=== PATIENT | male | born 1955 | race Caucasian/White ===

== ENCOUNTER 2017-04-18 02:54 | Inpatient (IN) ==
[2017-04-18] MEDS ORDERED: *HR* HYDROmorphone (PF) 1 MG/ML SYRINGE IVP ONE ×2 (03:00→05:37)
[2017-04-18] MEDS ORDERED: Hyoscyamine 0.5 MG/ML MLS IM ONE (03:00)
[2017-04-18] MEDS ORDERED: 0.9 % Sodium Chloride 1,000 ML IVC ONE (03:00)
--- NOTE | 2017-04-18 03:20 | Emergency Department Note ---
Disposition Clinical Impression: Nephrolithiasis, Acute kidney injury, Nausea Disposition: Admitted As Inpatient Condition: Fair Referrals: Art Ramírez MD [Primary Care Provider] - Forms: ED Satisfaction Letter Time of Disposition: 06:06 General Adult HPI - General Chief complaint: ED Back Pain/Injury Stated complaint: kidney stone pain Time Seen by Provider: 04/18/17 02:57 Source: patient Limitations: no limitations Nursing Notes Reviewed: Yes Vital Signs Reviewed: Yes - History of Present Illness HPI Narrative: Mr. Sosa, a 61-year-old male, presents from home for evaluation of right- sided flank pain persisted over the last 3 days. He was seen and diagnosed with a right-sided nephrolithiasis in this department 2 days ago. His pain or cysts and is getting progressively worse. Described as right-sided intermittent sharp stabbing. PMH: Nephrolithiasis Patient has no current urologist. ROS: Positive: Nephrolithiasis, right-sided pain, decreased PO intake, nausea Negative: Fever, chills, vomiting, pain with urination Physical exam Vital Signs Reviewed General: Patient is alert, oriented, and in no acute distress. HEENT: No facial asymmetry. Head is normocephalic and atraumatic. Mucosa moist. Trachea midline. Cardiovascular: Heart regular rate and rhythm without clicks, rubs, gallops, or murmurs. No JVD. PMI nondisplaced. Respiratory: Symmetric chest rise with good respiratory effort. Bilateral breath sounds are clear without wheezing, crackles, or rhonchi. Abdomen: Bowel sounds present normoactive x-4 quadrants. Abdomen is soft, nondistended. Right sided tenderness. Musculoskeletal: Right CVA tenderness. Psych: Patient's affect is appropriate for situation. MDM: Analgesia, antiemetic. We will repeat CT assessing for worsening hydronephrosis. Patient's pain is poorly controlled while in the emergency department. His nausea is moderately controlled. I clinically suspect that, it discharge home, he will be returning for continued pain and nausea management. He has had minimal by mouth intake while at home. After discussion with patient and his , they agree to admission for pain and nausea control as well as possible urology consult for worsening hydronephrosis causing obstructive acute kidney injury. I discussed the patient with the admitting hospitalist, , who agrees to accept the patient for continued management. CT abdomen and pelvis with IV and no oral contrast dated 04/16/17: CT/CT abd pelvis w iv no oral IMPRESSION: 1. A 4 mm proximal right ureteral calculus with mild right-sided hydronephrosis. 2. Otherwise no acute findings within the abdomen or pelvis. No CT evidence of appendicitis. Abdomen/Pelvis CT 04/18/17 03:00 IMPRESSION: Re- demonstration of the 4 mm proximal right ureteral calculus which has slightly progressed distally compared to prior examination with persistent right hydroureteronephrosis and perinephric stranding which is slightly worsened. D/ / Laci Hayden MD / Laci Hayden MD Interpreting Provider: Laci Hayden MD Pain Scale: 10 - Related Data Previous Rx's Medication Instructions Recorded Ondansetron ODT [Zofran ODT] 4 mg SL Q6HR PRN #12 tab.rapdis 04/16/17 OxyCODONE/APAP 5/325 [Percocet 1 each PO Q4HR PRN #18 tablet 04/16/17 5/325 MG] Tamsulosin [Flomax] 0.4 mg PO DAILY #5 cap.er.24h 04/16/17 Allergies Allergy/AdvReac Type Severity Reaction Status Date / Time No Known Allergies Allergy Verified 04/18/17 02:55 All systems ED: reviewed and negative except as stated. Review of Systems: As Per HPI Past Medical History - Past Medical History Medical history: Reports: arthritis, kidney stones Psychiatric history: Reports: no psych history - Social History Smoking Status: Never smoker Smokeless Tobacco Status: No Alcohol use: Reports: none Drug use: Reports: none Physical Exam - General Limitations: no limitations General appearance: alert Course Vital Signs Temperature 98.4 F 04/18/17 02:58 Pulse Rate 82 04/18/17 02:58 Respiratory Rate 16 04/18/17 02:58 Blood Pressure 170/91 04/18/17 02:58 O2 Sat by Pulse Oximetry 94 04/18/17 02:58 Temperature 98.4 F 04/18/17 02:58 Pulse Rate 89 04/18/17 05:30 Respiratory Rate 16 04/18/17 05:30 Blood Pressure 145/84 04/18/17 05:30 O2 Sat by Pulse Oximetry 94 04/18/17 05:30 Oxygen Delivery Oxygen Delivery Room Air Medical Decision Making - Lab Data Result diagrams: 04/18/17 04:16 04/18/17 04:16 Lab Results 04/18/17 04/18/17 04/18/17 Range/Units 03:45 04:16 04:16 WBC 18.1 H D (4.3-11.1) K/mcL RBC 4.55 (4.19-5.50) M/mcL Hgb 13.7 (12.9-16.9) g/dL Hct 40.2 (37.5-50.1) % MCV 88.4 (83.0-100.0) fL MCH 30.1 (28.0-33.3) pg MCHC 34.1 (31.6-35.5) g/dL RDW 12.2 (11.5-14.5) % Plt Count 258 (140-400) K/mcL MPV 9.0 L (9.4-12.4) fL Immature Gran % 0.6 (0-4) % Seg Neutrophils % 89.4 % Lymphocytes % 3.4 % Monocytes % 6.5 % Eosinophils % 0.0 % Basophils % 0.1 % Neutrophils # 16.2 H (1.6-8.9) K/mcL Lymphocytes # 0.6 (0.6-4.6) K/mcL Monocytes # 1.2 (0.0-1.3) K/mcL Eosinophils # 0.0 (0.0-0.6) K/mcL Basophils # 0.0 (0.0-0.2) K/mcL Sodium 133 L (136-145) mEq/L Potassium 4.3 (3.5-4.5) mEq/L Chloride 100 (98-109) mEq/L Carbon Dioxide 24 (19-29) mEq/L BUN 21 (8-26) mg/dL Creatinine 1.57 H (0.72-1.25) mg/dL Est GFR ( Amer) 55 L (> 60) Est GFR (Non-Af Amer) 45 L (> 60) BUN/Creatinine Ratio 13 (6-26) Glucose 188 H (70-99) mg/dL Calculated Osmolality 284 (280-300) Calcium 8.7 (8.6-10.8) mg/dL Total Bilirubin 0.9 D (0.2-1.2) mg/dL AST 14 (5-34) Units/L ALT 17 (0-55) Units/L Alkaline Phosphatase 80 (38-126) Units/L Serum Total Protein 6.6 (6.0-8.3) g/dL Albumin 3.5 (3.5-5.0) g/dL Globulin 3.1 (2.4-3.5) g/dL Albumin/Globulin Ratio 1.1 (1.1-2.2) Urine Color Yellow (Yellow) Urine Clarity Clear (Clear) Urine pH 6.0 (5.0-8.0) pH Units Ur Specific Cisco 1.029 H (1.010-1.025) Urine Protein Negative (Neg-Trace) mg/dL Urine Glucose (UA) 100 H (Normal) mg/dL Urine Ketones 15 H (Negative) mg/dL Urine Blood Small H (Negative) Urine Nitrite Negative (Negative) Urine Bilirubin Negative (Negative) Urine Urobilinogen Normal (Normal) mg/dL Ur Leukocyte Esterase Negative (Negative) Urine Microscopic RBC 5-15 H (0-3) per hpf Urine Microscopic WBC 0-3 (0-3) per hpf Ur Squamous Epith Cells Moderate H (None-Few) per lpf Urine Bacteria None Seen (None-Few) per hpf Hyaline Casts None Seen (None-Few) per lpf Ur Culture Indicated? NO (NO) Attestation Statement - Attestation Attestation: I examined this patient and my medical decision-making was reviewed with the Resident Physician. I agree with the documented findings, disposition and treatment plan as described except to the extent set forth below. Concern for kidney stone and possible hydronephrosis. We will obtain CT scan and basic laboratory analysis to assess creatinine as well as to assess stone burden. Pain control. Final disposition pending results of imaging.
[2017-04-18 04:03] LABS: Bilirubin,Urine Negative (Negative); Blood,Urine Small (Negative); Clarity,Urine Clear (Clear); Color,Urine Yellow (Yellow); Glucose,Urine (UA) 100 mg/dL (Normal); Ketones,Urine 15 mg/dL (Negative); Leukocyte Esterase,Urine Negative (Negative); Nitrite,Urine Negative (Negative); Protein,Urine Negative (Neg-Trace); Specific Gravity,Urine 1.029 (1.010-1.025); Urobilinogen,Urine Normal (Normal)
[2017-04-18 04:04] LABS: Bacteria,Urine None Seen per hpf (None-Few); Hyaline Casts,Urine None Seen per lpf (None-Few); Squamous Epithelial Cell,Urine Moderate per lpf (None-Few); WBC,Urine 0-3 per hpf (0-3)
[2017-04-18 04:25] LABS: Basophils % 0.1 %; Hematocrit 40.2 % (37.5-50.1); Hemoglobin 13.7 g/dL (12.9-16.9); Immature Granulocytes % 0.6 % (0-4); Lymphocytes # 0.6 K/mcL (0.6-4.6); Lymphocytes % 3.4 %; Mean Corpuscular HGB Conc 34.1 g/dL (31.6-35.5); Mean Corpuscular Hemoglobin 30.1 pg (28.0-33.3); Mean Corpuscular Volume 88.4 fL (83.0-100.0); Monocytes # 1.2 K/mcL (0.0-1.3); Monocytes % 6.5 %; Neutrophils # 16.2 K/mcL (1.6-8.9); Platelet Count 258 K/mcL (140-400); Red Blood Count 4.55 M/mcL (4.19-5.50); Red Cell Distribution Width 12.2 % (11.5-14.5); Segmented Neutrophils % 89.4 %
[2017-04-18 04:45] LABS: Albumin 3.5 g/dL (3.5-5.0); Albumin/Globulin Ratio 1.1 (1.1-2.2); Calcium 8.7 mg/dL (8.6-10.8); Globulin 3.1 g/dL (2.4-3.5); Potassium 4.3 mEq/L (3.5-4.5); Total Protein 6.6 g/dL (6.0-8.3)
[2017-04-18 04:46] LABS: Bilirubin,Total 0.9 mg/dL (0.2-1.2)
[2017-04-18] MEDS ORDERED: Naloxone 0.4 MG/ML INJ IVP PRN ×2 (07:46→15:58)
[2017-04-18] MEDS ORDERED: Ondansetron 4 MG/2 ML VIAL IVP PRN ×2 (07:46→15:58)
[2017-04-18] MEDS ORDERED: *HR* Promethazine 25 MG/ML VIAL IVP PRN ×3 (07:46→15:58)
[2017-04-18] MEDS ORDERED: Acetaminophen 325 MG TABLET PO PRN ×2 (07:46→15:58)
[2017-04-18] MEDS ORDERED: *HR* HYDROcodone/Acet 5/325 mg TABLET PO PRN ×3 (07:46→16:17)
[2017-04-18] MEDS ORDERED: *HR* HYDROcodone/Acet 7.5/325 mg TABLET PO PRN ×2 (07:50→15:58)
[2017-04-18] MEDS ORDERED: 0.9 % Sodium Chloride 1,000 ML IVC SCH ×2 (08:00→15:58)
[2017-04-18] MEDS: *HR* HYDROmorphone (PF) 1 MG/ML SYRINGE IVP PRN ×2 (08:22→11:42)
--- NOTE | 2017-04-18 08:32 | Urology - Consult Note ---
Date of Encounter: 04/18/17 Time of Encounter: 08:28 - Assessment and Plan (1) Renal colic Current Visit: No Status: Acute Assessment and plan: 61-year-old man with a right proximal ureteral stone. He has been admitted for pain control. His urinalysis does not show any pyuria. Although he does have an elevated white count, he has been afebrile. I think the elevated white count is likely due to de-margination. I recommend proceeding with a right ureteroscopy, laser lithotripsy and stent placement. He was informed of the risks of the procedure including but not limited to bleeding, infection, injury to other structures, need for further procedures, stent irritation, incomplete fragmentation, ureteral perforation, need for nephrostomy tube, need for open repair, risks unforeseen, and the risk of anesthesia. He is willing to proceed. Urology CN:HPI Consult date: 04/18/17 Reason for consult Urology: Other (Right ureteral stone) Requesting physician: Venkata Hancock History of present illness: 61-year-old man presents with a 2 day history of right flank pain. The pain is very severe. It starts in the right flank and radiates to the right groin. He has never had pain like this before. Nausea and emesis associated with it. The pain is sharp. He came to emergency department and a CT scan showed evidence of a right proximal ureteral stone. He was admitted for pain control. He had an elevated white count, but has been afebrile. Past Med Surg Social Fam HX - Past Medical History Medical history: arthritis, kidney stones Psychiatric history: no psych history - Social History Smoking Status: Never smoker Smokeless Tobacco Status: No Alcohol use: none Drug use: none - Family History Mother Living Status: Still Living Father Living Status: Still Living Medications and Allergies Ondansetron ODT [Zofran ODT] 4 mg SL Q6HR PRN #12 tab.rapdis 04/16/17 [Rx] OxyCODONE/APAP 5/325 [Percocet 5/325 MG] 1 each PO Q4HR PRN #18 tablet 04/16/17 [Rx] Tamsulosin [Flomax] 0.4 mg PO DAILY #5 cap.er.24h 04/16/17 [Rx] DULoxetine [Cymbalta] 60 mg PO DAILY 04/18/17 [History] HYDROcodone/Acet 7.5/325 mg [Marathon 7.5-325 mg] 1 tab PO Q4HR PRN 04/18/17 [ History] Meloxicam 15 mg PO DAILY 04/18/17 [History] 3 Allergy/AdvReac Type Severity Reaction Status Date / Time No Known Allergies Allergy Verified 04/18/17 02:55 Review of Systems - Constitutional no chills, no fever(s) - EENT Nose, mouth and throat: no dizziness - Cardiovascular no chest pain - Respiratory no dyspnea - Gastrointestinal no nausea, no vomiting - Genitourinary flank pain, no hematuria - Musculoskeletal no back pain - Integumentary no erythema, no rash - Neurological no weakness - Psychiatric no suicidal ideation - Hematologic/Lymphatic no easy bleeding - Allergic/Immunologic no wheezing Exam Initial Vital Signs Temp Pulse Resp BP Pulse Ox 98.4 F 82 16 170/91 94 04/18/17 02:58 04/18/17 02:58 04/18/17 02:58 04/18/17 02:58 04/18/17 02:58 - General physical appearance Present: well developed, well nourished, no distress - Eyes Absent: icteric - ENT Present: normal nares - Neck Present: trachea midline - Respiratory Present: normal respiratory effort - Cardiovascular Cardiovascular exam IM: RRR - Abdomen Abdomen: Present: soft Urology Results - Labs 04/18/17 04:16 04/18/17 04:16 Abnormal lab results WBC 18.1 K/mcL (4.3-11.1) H D 04/18/17 04:16 MPV 9.0 fL (9.4-12.4) L 04/18/17 04:16 Neutrophils # 16.2 K/mcL (1.6-8.9) H 04/18/17 04:16 Sodium 133 mEq/L (136-145) L 04/18/17 04:16 Creatinine 1.57 mg/dL (0.72-1.25) H 04/18/17 04:16 Est GFR ( Amer) 55 (> 60) L 04/18/17 04:16 Est GFR (Non-Af Amer) 45 (> 60) L 04/18/17 04:16 Glucose 188 mg/dL (70-99) H 04/18/17 04:16 Ur Specific Delia 1.029 (1.010-1.025) H 04/18/17 03:45 Urine Glucose (UA) 100 mg/dL (Normal) H 04/18/17 03:45 Urine Ketones 15 mg/dL (Negative) H 04/18/17 03:45 Urine Blood Small (Negative) H 04/18/17 03:45 Urine Microscopic RBC 5-15 per hpf (0-3) H 04/18/17 03:45 Ur Squamous Epith Cells Moderate per lpf (None-Few) H 04/18/17 03:45 All other labs normal. - Imaging CT scan - abdomen: report reviewed, image reviewed CT scan - pelvis: report reviewed, image reviewed Consult Discharge Plan - Plan Referrals: Art Ramírez MD [Primary Care Provider] -
[2017-04-18] MEDS ORDERED: Famotidine 20 MG TABLET PO SCH ×2 (09:00→16:30)
--- NOTE | 2017-04-18 12:43 | Internal Med History&Physical ---
Date of Encounter: 04/18/17 Time of Encounter: 09:00 Assessment and Plan (1) SIRS (systemic inflammatory response syndrome) Current visit: Yes Status: Acute Pt does meet SIRS criteria with elevated WBC, OTILIA and source of inf as Pyelonephritis Will admit the pt into Med Surg Started him on Iv fluids Empirical abx Rocephin will f/u on urine cx (2) Pyelonephritis, acute Current visit: Yes Status: Acute Reviewed CT of Abd showing Rt hydronephrosis and perinephric stranding concerned for pyelonephritis will treat him with IV abx Rocephin (3) Obstructive uropathy Current visit: No Status: Acute Rt ureter stone Consulted Urology Scheduled for Cystoscope with stent today NPO for now (4) Hydronephrosis Current visit: No Status: Acute Qualifiers: Qualified Code(s): N13.2 - Hydronephrosis with renal and ureteral calculous obstruction (5) Acute kidney injury Current visit: Yes Status: Acute due to dehydration and obstructive uropathy with renal calculi cont IV hydration avoid nephrotoxic meds Internal Medicine - H&P: HPI Chief complaint: Rt flank pain Admitted From: Emergency Dept Plans for Post Hospital Care: Home History of present illness: Mr. Sosa is a 61 year old male presented to ER from home for evaluation of right-sided flank pain persisted over the last 3 days. He was seen and diagnosed with a right-sided nephrolithiasis in this department 2 days ago. He came back to ER this morning again with progressively worsening pain. He described as right-sided intermittent sharp stabbing, 8/10 in severity. Denied any hematuria Past Med Surg Social Fam HX - Past Medical History Medical history: arthritis, kidney stones Psychiatric history: no psych history - Past Surgical History Surgical History: no surgical history - Social History Smoking Status: Never smoker Smokeless Tobacco Status: No Alcohol use: none Drug use: none - Family History Mother Living Status: Still Living Father Living Status: Still Living Internal Medicine - H&P: Meds Ondansetron ODT [Zofran ODT] 4 mg SL Q6HR PRN #12 tab.rapdis 04/16/17 [Rx] OxyCODONE/APAP 5/325 [Percocet 5/325 MG] 1 each PO Q4HR PRN #18 tablet 04/16/17 [Rx] Tamsulosin [Flomax] 0.4 mg PO DAILY #5 cap.er.24h 04/16/17 [Rx] DULoxetine [Cymbalta] 60 mg PO DAILY 04/18/17 [History] Meloxicam 15 mg PO DAILY 04/18/17 [History] 3 Allergy/AdvReac Type Severity Reaction Status Date / Time No Known Allergies Allergy Verified 04/18/17 02:55 All Systems PM: A 10-system review of systems was performed and is negative for pertinent findings except as documented above in the HPI. Review of systems: All the systems are reviewed everything is benign except the systems and symptoms I mentioned in the history of present illness - Constitutional Vitals: Temp Pulse Resp BP Pulse Ox 98.7 F 78 16 129/80 93 04/18/17 06:54 04/18/17 06:54 04/18/17 06:54 04/18/17 06:54 04/18/17 06:54 General appearance: Present: mild distress (with pain), A&O X 3, answers questions appropriately - Head Head exam: Present: atraumatic, normal inspection - Respiratory Respiratory exam: Present: decreased breath sounds, wheezes (mild). Absent: rales, respiratory distress, rhonchi - Cardiovascular Cardiovascular exam: Present: RRR, +S1, +S2. Absent: systolic murmur - GI/Abdominal GI/Abdominal exam: Present: soft, tenderness (moderate tenderness in RLQ). Absent: rebound, rigid - Extremities Exam Extremities exam: Absent: calf tenderness, pedal edema, tenderness - Back Exam Back exam: Present: CVA tenderness (R). Absent: CVA tenderness (L) - Neurological Exam Neurological exam: Present: alert, oriented X3 - Psychiatric Psychiatric exam: Present: normal affect, normal mood Internal Med - H&P Results - Labs CBC & Chem 7: 04/18/17 04:16 04/18/17 04:16
[2017-04-18] MEDS ORDERED: *HR* HYDROmorphone (PF) 1 MG/ML SYRINGE IVP PRN ×2 (13:28→15:58)
--- NOTE | 2017-04-18 13:28 | Anesthesia Evaluation PreOp ---
Date of Encounter: 04/18/17 Time of Encounter: 13:27 - Past History Planned Operation: Right ureteroscopy Cardiac History: Denies any Significant Hx Pulmonary History: Denies Any Significant HX PROTOCOL MANAGER History: Denies Any Significant HX Other Medical History: Renal (Stones), Other (RA) Anesthesia History: No Prior Anesthetic Complications, Past Anesthesia (@ level cervical fusion) Alcohol Use: none Drug use: none Medications and Allergies Ondansetron ODT [Zofran ODT] 4 mg SL Q6HR PRN #12 tab.rapdis 04/16/17 [Rx] OxyCODONE/APAP 5/325 [Percocet 5/325 MG] 1 each PO Q4HR PRN #18 tablet 04/16/17 [Rx] Tamsulosin [Flomax] 0.4 mg PO DAILY #5 cap.er.24h 04/16/17 [Rx] DULoxetine [Cymbalta] 60 mg PO DAILY 04/18/17 [History] Meloxicam 15 mg PO DAILY 04/18/17 [History] 3 Allergy/AdvReac Type Severity Reaction Status Date / Time No Known Allergies Allergy Verified 04/18/17 02:55 - Meds/Allergy Pre-op Review Medications Reviewed: Yes Allergies Reviewed: Yes Beta Blockers on Current Med List: No Anesthesia Results - Labs 04/18/17 04:16 04/18/17 04:16 Anesthesia Exam O2 Sat Height 2.01 m Weight 127.006 kg O2 Sat by Pulse Oximetry 93 O2 Sat by Pulse Oximetry 94 O2 Sat by Pulse Oximetry 94 Vital Signs Temp Pulse Resp BP Pulse Ox 98.4 F 82 16 170/91 94 04/18/17 02:58 04/18/17 02:58 04/18/17 02:58 04/18/17 02:58 04/18/17 02:58 Vital Signs/O2 Sat, Most Current Temp Pulse Resp BP Pulse Ox 98.7 F 78 16 129/80 93 04/18/17 06:54 04/18/17 06:54 04/18/17 06:54 04/18/17 06:54 04/18/17 06:54 Height: 6'7'' Weight: 280# NPO (# of Hours): > 8 hrs Pain Scale: 0 Pain Scale Used: Numeric (1 - 10) - HEENT Pupil (Motor): Pupils equal, EOMI Mallampati: III Teeth: Normal Oral Opening: Greater than 3 - PROTOCOL MANAGER LOC: Oriented PROTOCOL MANAGER Motor: Normal RUE, Normal LUE, Normal RLE, Normal LLE, Normal Face PROTOCOL MANAGER Sensory: Normal: RUE, LUE, RLE, LLE, Face - Cardiac Rhythm: Regular Murmur: None JVD: No Carotid Bruit: No - Pulmonary Breath Sounds: bilateral Clear Respiratory Effort: Symmetrical Anesthesia Assess/Plan ASA Score: 2 Modified Kellen Scale for Level of Consciousness: Cooperative, oriented, and tranquil Anesthetic Plan: General Autologous Blood: Yes Monitoring Plan: Standard Monitors Recovery Plan: PACU
[2017-04-18] MEDS ORDERED: Ondansetron 4 MG/2 ML VIAL IVP ONE (13:29)
[2017-04-18] MEDS ORDERED: *HR* Labetalol 100 MG/20 ML MDV IVP PRN (13:29)
[2017-04-18] MEDS ORDERED: Albuterol 2.5 MG/3 ML NEBULIZER IH ONE (13:29)
[2017-04-18] MEDS ORDERED: *HR* Midazolam HCl 2 MG/2 ML VIAL ONE (13:41)
[2017-04-18] MEDS ORDERED: *HR* Propofol 200 MG/20 ML VIAL IVP ONE (13:41)
[2017-04-18] MEDS ORDERED: *HR* FentaNYL (PF) 100 MCG/2 ML VIAL ONE (13:41)
[2017-04-18] MEDS ORDERED: Ondansetron 4 MG/2 ML VIAL ONE (13:44)
[2017-04-18] MEDS ORDERED: Dexamethasone 4 MG/ML VIAL ONE (13:44)
[2017-04-18] MEDS ORDERED: Lidocaine -MPF 2% 2 ML VIAL ONE (13:44)
--- NOTE | 2017-04-18 14:45 | Operative Note ---
Date of procedure: 04/18/17 Pre-op diagnosis: Right ureteral stone Post-op diagnosis: same Procedure: Right ureteroscopy, laser lithotripsy, and stent placement. Implants: 6 Somali by 28 cm double-J stent. Complications: None. Anesthesia: GISELA Surgeon: Coleman Simon Estimated blood loss (cc): 1 Specimen: none Condition: stable Disposition: PACU Procedure in Detail: Indications: Mr. Sosa is a 61-year-old male who has a history of nephrolithiasis. He had a CT scan which showed a right proximal ureteral stone. He was admitted for pain control. He elected to undergo a right ureteroscopy, laser lithotripsy, and basket stone extraction with stent placement. He was aware of the risks of the procedure including but not limited to bleeding, infection, injury to other structures, need for further procedures, stent irritation, need for nephrostomy tube, need for open repair, risks otherwise unforeseen, and the risk of anesthesia. He is willing to proceed. Procedure in Detail: After informed consent was obtained the patient was brought back to the operating room and placed in supine position. A time out was performed. General anesthesia was administered and an LMA was placed. He was then placed in the lithotomy position. He was prepped and draped in the usual sterile fashion. Cystoscopy was performed. The anterior urethra was normal. There was no evidence of bladder tumors. The ureteral orifices were in the normal orthotopic position. There was no duplication of the ureteral orifices. The sensor wire was placed in the right ureteral orifice. The wire was then brought up into the kidney under fluoroscopic guidance. I dilated the distal ureter with the 8/10 Somali ureteral dilator. The semirigid ureteroscope was advanced into the ureter. The ureter was still tight. I passed the ZIP wire through the scope and this allowed me to obtain access all the way into the proximal ureter. I was not able to visualize the stone. The scope was removed leaving the ZIP wire. The flexible ureteroscope was then passed over the ZIP wire. It didn't pass easily and I removed the sensor wire. I was then able to advance the scope into the kidney. A stone was seen in the upper pole calyx. The 200 micron laser fiber was inserted. The stone was fragmented into small pieces. All the fragments appeared to be small enough to pass. The scope was then removed. There is no stone seen within the ureter. A 6 Somali by 28cm JJ stent was then placed. The dangle strings were left intact and secured to the penis with a Tegaderm. The patient was then awakened from general anesthesia and brought to recovery room in good condition. All sponge, needle, and instrument counts were correct.
--- NOTE | 2017-04-18 14:48 | Event Note ---
Date of Encounter: 04/18/17 Time of Encounter: 14:47 His stone was well fragmented in the operating room today. A stent was left in place. If he does well postoperatively, he can be discharged home today. He should remove the stent in 3 days by pulling on the string. Please arrange for follow-up in the urology clinic in 2-4 weeks. He should expect to feel flank pain with voiding secondary to the stent.
--- NOTE | 2017-04-18 15:18 | Anesthesia Evaluation Post Op ---
Date of Encounter: 04/18/17 Time of Encounter: 15:17 - Vital Signs Vital Signs: Vital Signs/O2 Sat, Most Current Temp Pulse Resp BP Pulse Ox 98.2 F 84 18 147/92 93 04/18/17 15:16 04/18/17 15:16 04/18/17 15:16 04/18/17 15:16 04/18/17 15:16 - Lungs Lungs: Clear Ascult./Percussion - Airway Airway: Non-obstructed - Cardiovascular Regular Rate - Mental Status Mental Status: Alert & Oriented, Answers Appropriately - Pain Pain Scale: 0 Pain Scale used: Numeric (1 - 10) - Nausea Vomiting Nausea Vomiting: Not Present - Hydration Hydration: NPO, Able to void - Discharge PostOp Status: Transfer Patient to floor
[2017-04-18 18:06] VITALS: BP 164/92
--- NOTE | 2017-04-18 18:19 | Discharge Summary ---
Date of Encounter: 04/18/17 Time of Encounter: 18:17 - Discharge Diagnosis (1) SIRS (systemic inflammatory response syndrome) Priority: Primary Status: Acute (2) Pyelonephritis, acute Priority: Secondary Status: Resolved (3) Obstructive uropathy Priority: Primary Status: Acute (4) Hydronephrosis Priority: Primary Status: Acute Qualifiers: Qualified Code(s): N13.2 - Hydronephrosis with renal and ureteral calculous obstruction (5) Acute kidney injury Priority: Primary Status: Acute - Discharge Medications Prescriptions: levoFLOXacin [Levofloxacin] 500 mg PO DAILY #4 tablet Home Medications: Ondansetron ODT [Zofran ODT] 4 mg SL Q6HR PRN #12 tab.rapdis 04/16/17 [Rx] OxyCODONE/APAP 5/325 [Percocet 5/325 MG] 1 each PO Q4HR PRN #18 tablet 04/16/17 [Rx] Tamsulosin [Flomax] 0.4 mg PO DAILY #5 cap.er.24h 04/16/17 [Rx] DULoxetine [Cymbalta] 60 mg PO DAILY 04/18/17 [History] Meloxicam 15 mg PO DAILY 04/18/17 [History] levoFLOXacin [Levofloxacin] 500 mg PO DAILY #4 tablet 04/18/17 [Rx] Allergies/Adverse Reactions: 3 Allergy/AdvReac Type Severity Reaction Status Date / Time No Known Allergies Allergy Verified 04/18/17 02:55 Date of admission: 04/18/17 08:45 Primary care physician: Art Ramírez MD - Patient Status Disposition: Home, Self-Care Condition: Good Overall status at discharge: patient is back to baseline - Discharge Instructions Follow Up With: Art Ramírez MD [Primary Care Provider] - Coleman Simon MD [Partnered Physician] - Additional Instructions: Please f/u with PCP in one week f/u with Urologist in 1-2 weeks - Diet and Activity Activity: increase activity as tolerated Diet: advance to your usual diet Hospital course: Mr. Sosa is a 61 year old male presented to ER from home for evaluation of right-sided flank pain persisted over the last 3 days. He was seen and diagnosed with a right-sided nephrolithiasis in this department 2 days ago. He came back to ER this morning again with progressively worsening pain. He described as right-sided intermittent sharp stabbing, 8/10 in severity. Denied any hematuria. Pt was admittd in the hospital and started him on empirtical abx and IV hydration. He was seen by Urologist who did Rt ureteroscope with lase lithotripsy and stent placement. Urology cleared him to go home today. Pt also wanted to go home. Recommend to f/u with PCP in one week and with Urologist in 1 -2 weeks. Also sent him home on PO Abx Levofloxacin for 4 more days. - Time Spent with Patient Total time spent providing and/or coordinating discharge services: - Constitutional Vitals: Temp Pulse Resp BP Pulse Ox 97.6 F 74 16 164/92 92 04/18/17 18:03 04/18/17 18:03 04/18/17 18:03 04/18/17 18:03 04/18/17 18:03 General appearance: Present: A&O X 3, answers questions appropriately - Head Head exam: Present: atraumatic, normal inspection - Respiratory Respiratory exam: Present: decreased breath sounds, wheezes (mild). Absent: rales, respiratory distress, rhonchi - Cardiovascular Cardiovascular exam: Present: RRR, +S1, +S2 - Extremities Exam Extremities exam: Absent: pedal edema, tenderness - Back Exam Back exam: Absent: CVA tenderness (L), CVA tenderness (R) - Psychiatric Psychiatric exam: Present: normal affect, normal mood - VTE Documentation of Mechanical Device: Intermittent pneumatic compression device
[2017-04-19] MEDS ORDERED: *HR* Enoxaparin 40 MG/0.4 ML SYRINGE SQ SCH ×2 (06:00)
== END 2017-04-18 18:31 | disposition home or self-care (01) | DRG 669 ==
LOC: 3ANU 02:54 → EMEROO 02:54 → 3ANU 06:43
PROVIDERS: ADMIT Internal Medicine; ATTEND Internal Medicine